=== PATIENT | male | born 1975 ===

== ENCOUNTER 2021-11-21 16:45 | Emergency (ER) | payer OTHER ==
--- OUTSIDE RECORDS SUMMARY | 2021-11-21 16:47 | XMS REPORT | Continuity of Care Document ---
:[address] [facility] t Address [address] [place] [address] Care Team Providers Name Role Phone ALINA Attending Clinician Unavailable ALINA Admitting Clinician Unavailable Payers Payer Name Policy Type Policy Number Effective Date Expiration Date S ource 1 C [id number] Problems This patient has no known problems. Allergies, Adverse Reactions, Alerts Allergy Allergy Status Severity Reaction(s) Onset Inactive Treating Comm ents Source Name Type Date Date Clinician No Known NA Active 2020-0 [facility] 12[facility]: l [facility] ([facility] No Known NA Active 2020-0 [facility] 12:40: l 08 ([facility]) No Known NA Active 2020-0 [facility]08 [facility] 12:39: l 23 ([facility]) No Known NA Active 2020-0 [facility] 05[facility]08 [facility] 12:39: l 12 ([facility] [facility]) No Known NA Active 2020-0 [facility]08 [facility] 12:39: l 06 ([place] [facility]) No Known NA Active 2020-0 [facility]08 [facility] 12:21: l 15 ([facility] [facility]) No Known NA Active 2020-0 [facility]08 [facility] 11:15: l 51 ([place] [facility]) No Known NA Active 2020-0 [facility] 05[facility]08 [facility] 10:36: l 04 ([place] [facility]) No Known DA Active U 2018- [facility] 8[facility] Medications This patient has no known medications. Procedures This patient has no known procedures. Encounters Start End Encounter Admission Attending Care Care Encounter Source Date/Time Date/Time Type Type Clinicians Facility Department ID 2021-10-17 Inpatient 1 MARTINE FULLER [facility] [id number] - [facility] 08:51:23 [id number] Hospit a l ([facility] nt) Results Test Description Test Time Test Comments Results Result Comments Source ER SCREEN FOR HIV 1/2 2020-05-10 09:40:00 Test Item Value Reference Range Interpretation Comme nts HIV 1/2 AB (test code = SCRN NEGATIVE NEGATIVE This test is used for SCREENING HIV) purposes only. All reactive results are prelimenary and confirmation results will fo llow. THYROID STIMULATION [id number] 08:31:00 Test Item Value Reference Range Interpretation Comments TSH (test code = TSH) 2.18 UIU/ML 0.465-4.68 LIPID [id number] 08:04:00 Test Item Value Reference Range Interpretation Comments CHOLEST (test code = 184 MG/DL 0-200 CHOLEST) TRIGLYCE (test code = 376 MG/DL 0-150 H TRIGLYCE) HDL (test code = HDL) 32 MG/DL 30-65 NEGATI VE RISK FACTOR FOR HEART DISEA SE IF HDL >/=60 mg/dl MAJOR RISK FACTOR FOR HEART DISEASE IF HDL <40 mg/dL CALC LDL (test code = 77 MG/DL <100 CALC LDL) % HEMOGLOBIN A1C (GLYCATED)2020-05-10 08:03:00 Test Item Value Reference Range Interpretation Comments HEMOGLOBIN A1C (test 5.3 % 0-6 ERAPEUTIC TARGET code = GLYCO-) FOR THE TREAT MENT OF DIABETES M ELLITUS PATIENTS IS < 7 % HBA1C. [employer] DIABETES [facility] 2002;25:S33-S49
[2021-11-21] MEDS ORDERED: DOXYCYCLINE 100 MG CAP PO ONE (17:46)
--- NOTE | 2021-11-21 17:51 | ER ---
Nurse's Notes [facility] Name: Shan Almendarez Age: 46 yrs Sex: Male : 1975 Arrival Date: 11/21/2021 Time: 16:45 Bed 17 Private MD: Diagnosis: Cutaneous Laceration of the Left Forearm, no foreign body Presentation: 11/21 16:48 Chief complaint: Patient states: he was working on his car YESTERDAY when the sloan fell ap3 onto his left arm. Patient's states she had to create a tourniquet to get the bleeding to stop. Patient presents to ER with dressing. Dressing is clean and intact at this time. Coronavirus screen: At this time, the client does not indicate any symptoms associated with coronavirus-19. Ebola Screen: No symptoms or risks identified at this time. Complicating Factors: laceration by car sloan. Initial Sepsis Screen: Does the patient meet any 2 criteria? No. Patient's initial sepsis screen is negative. Does the patient have a suspected source of infection? No. Patient's initial sepsis screen is negative. Risk Assessment: Do you want to hurt yourself or someone else? Patient reports no desire to harm self or others. Onset of symptoms was November 20, 2021. 16:48 Method Of Arrival: Ambulatory ap3 16:48 Acuity: JENNIFER 4 ap3 Triage Assessment: 16:56 General: Appears in no apparent distress. comfortable, Behavior is calm, cooperative, ap3 appropriate for age. Pain: Complains of pain in dorsal aspect of left forearm Pain currently is 7 out of 10 on a pain scale. Pain began suddenly, 1 day ago. Neuro: Level of Consciousness is awake, alert, obeys commands, Oriented to person, place, time, situation, Appropriate for age Gait is steady, Speech is normal. Cardiovascular: Patient's skin is warm and dry. Respiratory: Airway is patent Respiratory effort is even, unlabored, Respiratory pattern is regular, symmetrical. Derm: Wound noted dorsal aspect of left forearm patient is has dressing on wound. nurse attempted to remove dressing, but the dressing will require a soak in saline. Injury Description: Laceration sustained to dorsal aspect of left forearm. Historical: - Allergies: 16:53 Codeine; ap3 16:53 PENICILLINS; ap3 - PMHx: 16:54 Hypertensive disorder; Schizophrenia; ap3 - Immunization history:: Client reports having NOT received the Covid vaccine. Last tetanus immunization: up to date Flu vaccine is not up to date. - Social history:: Smoking status: Patient reports the use of cigarette tobacco products, smokes two packs cigarettes per day. Patient uses street drugs, Methamphetamine (Meth). Screenin:58 Abuse screen: Denies threats or abuse. Nutritional screening: No deficits noted. ap3 Tuberculosis screening: No symptoms or risk factors identified. Fall Risk None identified. Assessment: 17:05 General: nurse soaked 4X4 gauze in sterile saline, and placed them on patients ap3 dressing. . 17:10 Pain: Complains of pain in dorsal aspect of left forearm Pain does not radiate. Pain ab2 currently is 9 out of 10 on a pain scale. Quality of pain is described as burning. Neuro: Level of Consciousness is awake, alert, obeys commands, Oriented to person, place, time, situation, Appropriate for age Roof Shingler are equal bilaterally Moves all extremities. Gait is steady, Speech is normal, Facial symmetry appears normal. Cardiovascular: No deficits noted. Denies chest pain, shortness of breath, Heart tones S1 S2 present Patient's skin is warm and dry. Chest pain is denied. Respiratory: Airway is patent Respiratory effort is even, unlabored, Respiratory pattern is regular, symmetrical, Breath sounds are clear bilaterally. GI: No deficits noted. No signs and/or symptoms were reported involving the gastrointestinal system. : No deficits noted. No signs and/or symptoms were reported regarding the genitourinary system. EENT: No deficits noted. No signs and/or symptoms were reported regarding the EENT system. Derm: Wound noted dorsal aspect of left forearm Wound is Pt states he dropped the sloan of a car on his arm yesterday. Musculoskeletal: Reports pain in dorsal aspect of left forearm. Injury Description: Laceration is jagged, bleeding moderately. Vital Signs: 16:48 BP 186 / 117; Pulse 108; Resp 18; Temp 98.0; Pulse Ox 99% on R/A; Weight 99.79 kg; ap3 Height 6 ft. (182.88 cm); Pain 7/10; 18:03 BP 159 / 97; Pulse 97; Resp 16; Pulse Ox 99% on R/A; ab2 16:48 Body Mass Index 29.84 (99.79 kg, 182.88 cm) ap3 ED Course: 16:45 Patient arrived in ED. as 16:51 [facility] Franco [facility] 16:51 Lauro Lara MD is Attending Physician. [facility] 16:53 Triage completed. ap3 16:58 Arm band placed on right wrist. ap3 17:10 Delta Lr is Primary Nurse. ab2 17:12 Patient has correct armband on for positive identification. Bed in low position. Call ab2 light in reach. Side rails up X2. Adult w/ patient. 17:12 No provider procedures requiring assistance completed. ab2 17:35 Wound care: to laceration was cleaned with soap and water, soaked in normal saline ab2 solution, dressed with 4X4s, Kerlix, coban. wet to dry applied. 18:03 Patient did not have IV access during this emergency room visit. ab2 Administered Medications: 17:49 Drug: Doxycycline 100 mg Route: PO; ab2 Outcome: 17:51 Discharge ordered by MD. [facility] 18:03 Discharged to home ambulatory, with family. ab2 18:03 Condition: good 18:03 Discharge instructions given to patient, family, Instructed on discharge instructions, follow up and referral plans. medication usage, Demonstrated understanding of instructions, follow-up care, medications, Prescriptions given X 1. 18:03 Patient left the ED. ab2 Signatures: Dashawn Franco PA PA Mary Humphreys Amanda, RN RN ap3 Delta Lr ab2 Corrections: (The following items were deleted from the chart) 16:55 16:53 Allergies: PENICILLINS; ap3 ap3 16:55 16:53 Allergies: Codeine; ap3 ap3 16:55 16:53 Home Meds: lisinopril 40 mg oral tab; ap3 ap3 16:55 16:53 Home Meds: lithium carbonate 600 mg Oral cap 1 cap 3 times per day; ap3 ap3 16:55 16:53 Home Meds: Albuterol Inhl as needed; ap3 ap3 16:55 16:53 PMHx: Hypertension; ap3 ap3 16:55 16:53 PMHx: COPD; ap3 ap3 16:55 16:53 PMHx: Sleep Apnea; ap3 ap3 16:55 16:53 PMHx: Schizophrenia; ap3 ap3 16:55 16:53 PMHx: Depression; ap3 ap3 16:55 16:53 PMHx: Suicide Attempts; ap3 ap3
--- NOTE | 2021-11-21 17:51 | EDPHYS ---
Physician Documentation [facility] Name: Shan Almendarez Age: 46 yrs Sex: Male : 1975 Arrival Date: 11/21/2021 Time: 16:45 Bed 17 Private MD: ED Physician Lauro Lara HPI: 11/21 17:44 This 46 yrs old Male presents to ER via Ambulatory with complaints of Laceration To [facility] Arm, Arm Injury. 17:44 The patient has a laceration occurred at home. The laceration(s) is(are) located on the [facility] left arm. Onset: The symptoms/episode began/occurred acutely, yesterday, at 18:00. Associated signs and symptoms: Pertinent negatives: deformity, heavy bleeding, loss of consciousness, numbness distal to injury, suspected foreign body. The patient has experienced similar episodes in the past. Patient states he slammed the sloan of a car on his left forearm. Patient is concerned due to pain. Denies fever, purulent drainage. Patient is UTD on tetanus immunization. . Historical: - Allergies: 16:53 Codeine; ap3 16:53 PENICILLINS; ap3 - PMHx: 16:54 Hypertensive disorder; Schizophrenia; ap3 - Immunization history:: Client reports having NOT received the Covid vaccine. Last tetanus immunization: up to date Flu vaccine is not up to date. - Social history:: Smoking status: Patient reports the use of cigarette tobacco products, smokes two packs cigarettes per day. Patient uses street drugs, Methamphetamine (Meth). ROS: 17:44 Constitutional: Negative for fever, chills, and weight loss, Cardiovascular: Negative [facility] for chest pain, palpitations, and edema, Respiratory: Negative for shortness of breath, cough, wheezing, and pleuritic chest pain. 17:44 Skin: Positive for laceration(s). 17:44 All other systems are negative. Exam: 17:44 Constitutional: This is a well developed, well nourished patient who is awake, alert, jmm and in no acute distress. Head/Face: atraumatic. Eyes: EOMI, no conjunctival erythema appreciated ENT: Moist Mucus Membranes Neck: Trachea midline, Supple Chest/axilla: Normal chest wall appearance and motion. Cardiovascular: Regular rate and rhythm. No edema appreciated Respiratory: Normal respirations, no respiratory distress appreciated Abdomen/GI: Non distended, soft Back: Normal ROM 17:44 Musculoskeletal/extremity: Full range of motion noted to the left elbow, left wrist, full radial pulse, full rodeo rider strength, compartments are soft, neurovascular to. 17:44 Skin: 4 cm laceration noted to the left forearm, no active bleeding, no purulent drainage, mild erythema surrounding the wound margins, no induration or streaking appreciated. 17:44 Neuro: Orientation: is normal, Mentation: is normal, Memory: is normal. 17:44 Psych: Behavior/mood is pleasant, cooperative. Vital Signs: 16:48 BP 186 / 117; Pulse 108; Resp 18; Temp 98.0; Pulse Ox 99% on R/A; Weight 99.79 kg; ap3 Height 6 ft. (182.88 cm); Pain 7/10; 18:03 BP 159 / 97; Pulse 97; Resp 16; Pulse Ox 99% on R/A; ab2 16:48 Body Mass Index 29.84 (99.79 kg, 182.88 cm) ap3 MDM: 16:59 Patient medically screened. [facility] 17:47 Data reviewed: vital signs, nurses notes. Counseling: I had a detailed discussion with angelique the patient and/or guardian regarding: the historical points, exam findings, and any diagnostic results supporting the discharge/admit diagnosis, the need for outpatient follow up, to return to the emergency department if symptoms worsen or persist or if there are any questions or concerns that arise at home. ED course: Patient is alert nontoxic in appearance in the ED. Due to the laceration being greater than 24 hours old wound was cleaned, wet-to-dry dressing was applied patient will be covered with antibiotics.. 11/21 17:37 Order name: Wound Care; Complete Time: 17:[address] [facility] Administered Medications: 17:49 Drug: Doxycycline 100 mg Route: PO; ab2 Disposition: 11/22 12:52 Co-signature as Attending Physician, Lauro Lara MD I agree with the assessment and sp3 plan of care. Disposition Summary: 11/21/21 17:51 Discharge Ordered Location: Home lisa Condition: Stable lisa Diagnosis - Cutaneous Laceration of the Left Forearm, no foreign body lisa Followup: [facility] - With: Private Physician - When: 2 - 3 days - Reason: Recheck today's complaints, Continuance of care, Re-evaluation by your physician Discharge Instructions: - Discharge Summary Sheet [facility] - Nonsutured Laceration Care [facility] Forms: - Medication Reconciliation Form [facility] - Thank You Letter jm - Antibiotic Education [facility] - Prescription Opioid Use [facility] Prescriptions: - Doxycycline Hyclate 100 mg Oral Tablet - take 1 tablet by ORAL route every 12 hours; 20 tablet; Refills: 0, Product jm Selection Permitted Signatures: Dashawn Franco PA PA jmm Prokisch, Amanda, RN RN ap3 Lauro Lara MD MD sp3 Delta Lr ab2 Corrections: (The following items were deleted from the chart) 11/21 16:55 16:53 Allergies: PENICILLINS; ap3 ap3 16:55 16:53 Allergies: Codeine; ap3 ap3 16:55 16:53 Home Meds: lisinopril 40 mg oral tab; ap3 ap3 16:55 16:53 Home Meds: lithium carbonate 600 mg Oral cap 1 cap 3 times per day; ap3 ap3 16:55 16:53 Home Meds: Albuterol Inhl as needed; ap3 ap3 16:55 16:53 PMHx: Hypertension; ap3 ap3 16:55 16:53 PMHx: COPD; ap3 ap3 16:55 16:53 PMHx: Sleep Apnea; ap3 ap3 16:55 16:53 PMHx: Schizophrenia; ap3 ap3 16:55 16:53 PMHx: Depression; ap3 ap3 16:55 16:53 PMHx: Suicide Attempts; ap3 ap3
[2021-11-21 18:20] VITALS: TEMP 98; O2SAT 99
[2021-11-21 18:22] VITALS: BP 159/97
== END 2021-11-21 18:03 | disposition home or self-care (01) ==
LOC: ER 16:45
DX: S41.112A Laceration without foreign body of left upper arm, initial encounter (principal); W26.8XXA Contact with other sharp object(s), not elsewhere classified, initial encounter; Y92.009 Unspecified place in unspecified non-institutional (private) residence as the place of occurrence of the external cause; F17.210 Nicotine dependence, cigarettes, uncomplicated; Z88.0 Allergy status to penicillin; Z88.5 Allergy status to narcotic agent
CPT/HCPCS: 99283